=== PATIENT | male | born 1965 | race Two or more races ===

== ENCOUNTER 2019-05-09 14:20 | Inpatient (IN) | payer SELFPAY ==
[~2019-05-09] VITALS: Ht 165.1 cm; Wt 93.2 kg
[2019-05-09 14:51] LABS: Basophils # (auto) 0.1 uL; Basophils % (auto) 0.8 % (0.0-2.0); Eosinophils # (auto) 0.1 uL; Eosinophils % (auto) 0.8 % (0.0-7.0); Hematocrit 48.2 % (41.0-53.0); Hemoglobin 16.3 g/dL (13.5-17.5); Lymphocytes # (auto) 3.2 uL; Lymphocytes % (auto) 27.4 % (10.0-50.0); Mean Corpuscular Hemoglobin 29.1 pg (28.0-32.0); Mean Corpuscular Hgb Conc. 33.7 g/dL (32.0-36.0); Mean Corpuscular Volume 86.3 fL (80.0-100.0); Monocytes % (auto) 8.5 % (0.0-12.0); Neutrophils # (auto) 7.3 uL; Neutrophils % (auto) 62.5 % (37.0-80.0); Nucleated Red Blood Cells % 0.1 %; Platelet Count (auto) 273 10^3/uL (140-450); Red Blood Cells 5.59 10^6/uL (4.5-5.90); Red Cell Distribution Width 14.4 % (11.8-14.3); White Blood Cell 11.6 10^3/uL (4.4-10.8)
[2019-05-09 15:09] LABS: INR 1.03 (0.9-1.15); Partial Thromboplastin Time 29.4 sec (23.64-32.05)
[2019-05-09 15:17] LABS: Alanine Aminotransferase 41 U/L (16-61); Albumin 3.7 g/dL (3.4-5.0); Anion Gap 10 (5-15); Aspartate Aminotransferase 19 U/L (15-37); BUN/Creatinine Ratio 24.2; Blood Urea Nitrogen 16 mg/dL (7-18); Calcium 8.6 mg/dL (8.5-10.1); Carbon Dioxide 24 mmol/L (21-32); Chloride 103 mmol/L (98-107); GFR African American 162 mL/min; GFR Non-African American 134 mL/min; Glucose 152 mg/dL (74-106); Magnesium 2.5 mg/dL (1.6-2.6); Potassium 3.9 mmol/L (3.5-5.1); Sodium 137 mmol/L (136-145)
[2019-05-09 15:22] LABS: Alkaline Phosphatase 86 U/L (45-117); Bilirubin, Total 0.4 mg/dL (0.2-1.0); Total Protein 7.9 g/dL (6.4-8.2)
[2019-05-09] MEDS ORDERED: ASPirin 81 mg TAB PO ONE (16:30)
[2019-05-09] MEDS ORDERED: DEXTROSE (50%) 50ML SYRG IV PRN (19:00)
[2019-05-09] MEDS ORDERED: NITROGLYCERIN 0.4 MG SL TAB SL PRN (19:00)
[2019-05-09] MEDS ORDERED: MORPHINE SULF INJ 2 MG/ML SYRINGE 1ML IV PRN ×2 (19:00)
[2019-05-09] MEDS ORDERED: ACETAMINOPHEN 500 MG TAB PO PRN (19:00)
[2019-05-09] MEDS ORDERED: ONDANSETRON HCL 4 MG/2 ML VIAL IV PRN (19:00)
[2019-05-09] MEDS ORDERED: SODIUM CHLORIDE 0.9% 1,000 ML IV ONE (19:00)
[2019-05-09] MEDS ORDERED: HYDROcodone-ACET 5/325MG TAB PO PRN (19:00)
[2019-05-09 20:43] LABS: Folate (Folic Acid) 18.58 ng/mL (5.38-24)
--- NOTE | 2019-05-09 20:49 | NUR ---
Telemetry admit from ER BRENDON TREJO admitted to Telemetry unit after SBAR received. Patient oriented to Kelly Helms, primary RN, unit, room, bed, and unit policies regarding patient care and visiting hours. Patient now on continuous telemetry monitoring, tele box # [[id number]] and telemetry reading on arrival to unit is [SR [id number]]. Patient weighed by bedscale and encouraged to call if they need something. All questions and concerns addressed, patient verbalized understanding. Note: []
[2019-05-09 20:52] VITALS: BP 121/55
[2019-05-09] MEDS: InsuLIN REG 1unit/0.01ml Soln (100units/ml) SC SCH (22:29)
[2019-05-09] MEDS: ACCU-CHEK COMFORT CURVE STRIP VI SCH (22:29)
--- NOTE | 2019-05-09 22:35 | NUR ---
ACCU-CHECK, BS 227. INSULIN GIVEN ORDERED. CONTINUE TO MONITOR.
--- NOTE | 2019-05-10 02:02 | NUR ---
PATIENT SLEEPING. NO S/S OF DISTRESS NOTED. CONTINUE CARE.
[2019-05-10 05:00] VITALS: BP 110/61
[2019-05-10] MEDS: ACCU-CHEK COMFORT CURVE STRIP VI SCH ×4 (06:19→21:40)
[2019-05-10] MEDS: InsuLIN REG 1unit/0.01ml Soln (100units/ml) SC SCH ×4 (06:20→21:51)
--- NOTE | 2019-05-10 06:21 | NUR ---
ACCU-CHECK, BS 149. INSULIN GIVEN ORDERED. CONTINUE TO MONITOR.
--- NOTE | 2019-05-10 07:30 | NUR ---
Opening Shift Note Assuming care of patient at this time. Patient is awake and alert. Patient denies pain. Patient shows no signs or symptoms of distress or shortness of breath. Bed is locked and lowered with side rails up x2. Instructed patient on plan of care for today and to call for assistance as needed. Call light within reach. Will continue to round hourly and as needed.
[2019-05-10 08:00] VITALS: BP 115/63
[2019-05-10 09:33] LABS: Urine Bacteria NONE SEEN /hpf (None Seen); Urine Blood Negative /uL (Negative); Urine Mucus FEW (None Seen); Urine Specific Gravity 1.028 (1.001-1.035); Urine WBC 3 /hpf (0 - 3)
[2019-05-10] MEDS: FAMOTIDINE 20 MG TAB PO SCH (09:33)
[2019-05-10 09:34] LABS: Alcohol, Urine < 3.0 mg/dL (0-5); Amphetamine Screen, Urine NEGATIVE (NEGATIVE); Barbiturate Scree,Urine NEGATIVE (NEGATIVE); Benzodiazephine Screen, Urine NEGATIVE (NEGATIVE); Cannabinoid Screen, Urine NEGATIVE (NEGATIVE); Cocaine Screen, Urine NEGATIVE (NEGATIVE); Opiate Scree,Urine NEGATIVE (NEGATIVE); Phencyclidine Screen, Urine NEGATIVE (NEGATIVE)
[2019-05-10 12:00] VITALS: BP 116/66
[2019-05-10] MEDS ORDERED: ASPirin 81 mg TAB PO ONE (14:15)
[2019-05-10] MEDS ORDERED: LORazepam 2MG/ML-1ML VIAL IV ONE (14:15)
[2019-05-10 17:00] VITALS: BP 119/71
--- NOTE | 2019-05-10 19:20 | NUR ---
Closing Shift Note Patient resting in bed. No distress noted. Will endorse care to the overnight caregiver RN.
--- NOTE | 2019-05-10 19:29 | NUR ---
RECEIVED PATENT FROM DAY SHIFT RN. PATIENT RESTING IN BED. NO S/S OF DISTRESS NOTED. DENIED PAIN FOR NOW. POC INSTRUCTED AND ENCOURAGED PATIENT TO CALL FOR ANIMAL STUNNER IF NEEDED. BED IN LOWEST POSITION WITH SIDE RAILS UP X 2. CALL GARCIA WITHIN REACH. ALARM ON. CONTINUE TO MONITOR FOR CHANGES Q1H AND PRN.
--- NOTE | 2019-05-10 19:51 | NUR ---
MD GARCIA AT BEDSIDE.
[2019-05-10 20:28] VITALS: BP 119/71
[2019-05-10] MEDS ORDERED: SODIUM CHLORIDE 0.9% 1,000 ML IV SCH (20:30)
--- NOTE | 2019-05-10 21:58 | NUR ---
ACCU-CHECK, BS 170. INSULIN AND LANTUS GIVEN ORDERED. CONTINUE TO MONITOR.
[2019-05-10 22:00] VITALS: BP 98/54
[2019-05-10] MEDS ORDERED: ATORVASTATIN 20 MG TAB PO SCH (22:00)
[2019-05-10] MEDS ORDERED: INSULIN LANTUS (GLARGINE) 1 /0.01ml (100units/ml) SC SCH (22:00)
--- NOTE | 2019-05-10 22:08 | NUR ---
Respiratory note: AT BEDSIDE, PT REFUSED CPAP AT THIS TIME. EXPLAINED TO PT THE BENEFITS OF WEARING CPAP AND IF PT WANTED TO TRY CPAP TO HAVE RT PAGED. PT PRESENTING NO RESPIRATORY DISTRESS AT THIS TIME. RN AWARE. WILL CONTINUE TO MONITOR.
--- NOTE | 2019-05-11 01:19 | NUR ---
PATIENT SLEEPING. NO S/S OF DISTRESS NOTED. CONTINUE CARE
[2019-05-11 05:00] VITALS: BP 110/65
[2019-05-11 05:45] LABS: Cholesterol 199 mg/dL (< 200); HDL Cholesterol 23 mg/dL (40-59); LDL Cholesterol 160 mg/dL (< 100); Triglycerides 166 mg/dL (< 150)
[2019-05-11] MEDS: ACCU-CHEK COMFORT CURVE STRIP VI SCH ×2 (06:38→11:30)
[2019-05-11] MEDS: InsuLIN REG 1unit/0.01ml Soln (100units/ml) SC SCH ×2 (06:38→11:30)
--- NOTE | 2019-05-11 06:39 | NUR ---
ACCU-CHECK, BS 137. INSULIN GIVEN ORDERED. CONTINUE TO MONITOR.
[2019-05-11] MEDS ORDERED: IOHEXOL 350 MG/ML 100ML IJ ONE (07:52)
[2019-05-11] MEDS ORDERED: ATORVASTATIN 20 MG TAB PO SCH (08:45)
[2019-05-11 09:00] VITALS: BP 113/72
[2019-05-11] MEDS ORDERED: ASPirin 81 mg TAB PO SCH (10:00)
[2019-05-11] MEDS: FAMOTIDINE 20 MG TAB PO SCH (10:05)
[2019-05-11] MEDS ORDERED: ATOR20TA50 PO (10:56)
[2019-05-11] MEDS ORDERED: ASPI81CH43 PO (10:56)
[2019-05-11] MEDS ORDERED: FAM20T PO (10:56)
[2019-05-11] MEDS ORDERED: METF-372 PO (10:56)
--- NOTE | 2019-05-11 12:21 | NUR ---
ASSESSED PT. AT THIS TIME, NO RESP. DISTRESS NOTED. PT. IS EATING HIS LUNCH SITTING AT THE BEDSIDE. BS. ARE CLEAR, HR=74,RR=18,SP02=98% ON RA. PT. IS MONG[place] SPEAKING , TRIED TO EXPLAIN TO PT. ABOUT WEARING CPAP AT NIGHT, HE DOES NOT UNDERSTAND, WILL TRY TO GET SOMEONE TO TRANSLATE, SO HE IS ABLE TO UNDERSTAND THE IMPORTANCE OF WEARING CPAP AT NIGHT. Addendum: 05/11/19 at 1228 by Maryanne Valdez RT Amended: Links added.
[2019-05-11 13:00] VITALS: BP 119/61
[2019-05-11 13:55] VITALS: BP 119/61
--- NOTE | 2019-05-11 16:41 | NUR ---
Discharge Discharge instructions given as ordered. Encourage to follow up with urgent care or public health as instructed. All questions and concerns addressed. Patient verbalized understanding. Medication reconciliation form completed and copy given to patient. IV removed with catheter intact, pressure dressing applied. Telemetry unit returned to ICU. Patient taken to vehicle via wheelchair with all personal belongings, accompanied by staff and family member. No distress noted at time of departure.
== END 2019-05-11 16:40 | disposition home or self-care (01) | DRG 65 ==
LOC: ER 14:20 → TELE 14:21 → TELE-WESTW 20:45
PROVIDERS: ADMIT Nurse Practitioner Acute Care; ATTEND Internal Medicine
DX: I63.9 Cerebral infarction, unspecified (principal); I24.9 Acute ischemic heart disease, unspecified; E66.01 Morbid (severe) obesity due to excess calories; I10 Essential (primary) hypertension; E11.65 Type 2 diabetes mellitus with hyperglycemia; F19.10 Other psychoactive substance abuse, uncomplicated; G47.9 Sleep disorder, unspecified; E78.5 Hyperlipidemia, unspecified; F17.210 Nicotine dependence, cigarettes, uncomplicated; I25.2 Old myocardial infarction; Z79.82 Long term (current) use of aspirin; Z79.84 Long term (current) use of oral hypoglycemic drugs; Z79.899 Other long term (current) drug therapy; Z82.3 Family history of stroke; Z82.49 Family history of ischemic heart disease and other diseases of the circulatory system; Z83.3 Family history of diabetes mellitus; Z68.34 Body mass index [BMI] 34.0-34.9, adult
CPT/HCPCS: 36415; 70450; 70496; 70498; 70551; 71046; 80053; 80061; 80307; 81001; 82607; 82746; 82962; 83036; 83735; 83880; 84207; 84425; 84443; 84484; 85025; 85610; 85730; 93005; 93306; 93886; 96360; 96361; G0378; J1815